=== PATIENT | male | born 1945 | race Caucasian/White ===

== ENCOUNTER 2019-06-04 15:45 | Inpatient (IN) ==
[2019-06-04 17:17] LABS: Basophils % 0.5 %; Eosinophils # 0.1 K/mcL (0.0-0.6); Eosinophils % 1.5 %; Hematocrit 35.9 % (37.5-50.1); Immature Granulocytes % 0.4 % (0-4); Lymphocytes # 0.9 K/mcL (0.6-4.6); Lymphocytes % 10.9 %; Mean Corpuscular Hemoglobin 31.8 pg (28.0-33.3); Mean Corpuscular Volume 93.5 fL (83.0-100.0); Mean Platelet Volume 12.1 fL (9.4-12.4); Monocytes % 12.8 %; Platelet Count 138 K/mcL (140-400); Red Blood Count 3.84 M/mcL (4.19-5.50); Red Cell Distribution Width 12.9 % (11.5-14.5); Segmented Neutrophils % 73.9 %; White Blood Count 8.1 K/mcL (4.3-11.1)
[2019-06-04 17:20] LABS: Bilirubin,Urine Negative (Negative); Blood,Urine Large (Negative); Clarity,Urine Cloudy (Clear); Glucose,Urine (UA) Normal (Normal); Ketones,Urine Negative (Negative); Leukocyte Esterase,Urine Small (Negative); Nitrite,Urine Negative (Negative); Protein,Urine >=300 mg/dL (Neg-Trace); Urobilinogen,Urine Normal (Normal)
[2019-06-04 17:21] LABS: Color,Urine Pink (Yellow)
[2019-06-04 17:27] LABS: Hemoglobin 12.2 g/dL (12.9-16.9)
[2019-06-04 17:30] LABS: BUN/Creatinine Ratio 10 (6-26); Blood Urea Nitrogen 9 mg/dL (8-23); Calcium 9.3 mg/dL (8.6-10.3); Carbon Dioxide 25 mEq/L (23-29); Chloride 97 mEq/L (98-107); Glucose 100 mg/dL (70-105); Osmolality,Calculated 273 (280-300); Potassium 3.5 mEq/L (3.5-5.1); Sodium 132 mEq/L (136-145); eGFR For African Americans > 60 (> 60); eGFR For Non-African Americans > 60 (> 60)
[2019-06-04] MEDS ORDERED: Isovue-370 500 ML BOTTLE IVP ONE (18:06)
[2019-06-04 18:23] LABS: Prothrombin Time 11.8 Seconds (9.4-12.1)
[2019-06-04] MEDS ORDERED: Acetaminophen 325 MG TABLET PO PRN (21:13)
[2019-06-05 06:24] LABS: Basophils % 0.6 %; Eosinophils # 0.1 K/mcL (0.0-0.6); Eosinophils % 2.7 %; Hematocrit 35.9 % (37.5-50.1); Hemoglobin 12.7 g/dL (12.9-16.9); Immature Granulocytes % 0.6 % (0-4); Lymphocytes # 0.9 K/mcL (0.6-4.6); Lymphocytes % 17.6 %; Mean Corpuscular HGB Conc 35.4 g/dL (31.6-35.5); Mean Corpuscular Hemoglobin 32.5 pg (28.0-33.3); Mean Corpuscular Volume 91.8 fL (83.0-100.0); Mean Platelet Volume 11.9 fL (9.4-12.4); Monocytes # 0.7 K/mcL (0.0-1.3); Monocytes % 14.1 %; Neutrophils # 3.1 K/mcL (1.6-8.9); Platelet Count 126 K/mcL (140-400); Red Blood Count 3.91 M/mcL (4.19-5.50); Segmented Neutrophils % 64.4 %; White Blood Count 4.8 K/mcL (4.3-11.1)
[2019-06-05 06:51] LABS: BUN/Creatinine Ratio 9 (6-26); Blood Urea Nitrogen 9 mg/dL (8-23); Carbon Dioxide 28 mEq/L (23-29); Chloride 99 mEq/L (98-107); Glucose 91 mg/dL (70-105); Osmolality,Calculated 282 (280-300); Potassium 3.4 mEq/L (3.5-5.1); Sodium 137 mEq/L (136-145); eGFR For African Americans > 60 (> 60); eGFR For Non-African Americans > 60 (> 60)
[2019-06-05] MEDS ORDERED: *HR* Metformin 500 MG TABLET PO SCH (08:00)
[2019-06-05] MEDS: 0.9 % Sodium Chloride 1,000 ML IVC SCH ×2 (09:53)
[2019-06-05] MEDS: hydroCHLOROthiazide 25 MG TABLET PO SCH (09:54)
[2019-06-05] MEDS: Lisinopril 20 MG TABLET PO SCH (09:55)
[2019-06-05] MEDS ORDERED: D5% in Water 1,000 ML IVC PRN (11:50)
[2019-06-05] MEDS ORDERED: *HR* Dextrose 50 % in Water (Syg) 50 ML SYRINGE IVP PRN (11:50)
[2019-06-05] MEDS ORDERED: Dextrose Gel 15 GM/37.5 ML TUBE PO PRN ×2 (11:50)
[2019-06-05] MEDS: Insulin LISPRO 300 UNITS/3 ML VIAL SQ SCH (17:58)
[2019-06-05] MEDS ORDERED: Insulin LISPRO 300 UNITS/3 ML VIAL SQ SCH (21:00)
[2019-06-06] MEDS: Insulin LISPRO 300 UNITS/3 ML VIAL SQ SCH (09:25)
[2019-06-06 09:38] VITALS: BP 111/61
[2019-06-06] MEDS: Lisinopril 20 MG TABLET PO SCH (09:40)
[2019-06-06] MEDS: hydroCHLOROthiazide 25 MG TABLET PO SCH (09:40)
== END 2019-06-06 13:00 | disposition home or self-care (01) | DRG 690 ==
LOC: 3ANU 15:45 → EMEROOARM 15:45 → 3ANU 23:15
PROVIDERS: ADMIT Internal Medicine; ATTEND Internal Medicine